=== PATIENT | male | born 1990 | race Caucasian/White ===

== ENCOUNTER 2016-07-19 19:39 | Emergency (ER) | payer OTHER ==
[2016-07-19 19:58] VITALS: RESP 18; TEMP 100
[2016-07-19] MEDS ORDERED: NS 1,000 ML IV ONE (20:25)
--- NOTE | 2016-07-19 20:35 | EDPHY ---
H & P Stated Complaint: ACHEY, FATIGUE, LOW BACK PAIN, CONSTIPATED - Personal History Current Tetanus/Diphtheria Vaccine: Unsure - Medical/Surgical History Hx Asthma: No Hx Chronic Respiratory Disease: No Hx Diabetes: No Hx Cardiac Disease: No Hx Renal Disease: No Hx Cirrhosis: No Hx Alcoholism: No Hx HIV/AIDS: No Hx Splenectomy or Spleen Trauma: Yes Other PMH: SPHEROCYTOSIS, SPLEEN/GB REMOVAL AT 4 YR OLD, TONSILS, CELLULITIS LYMPH NODE INVOLVEMENT - Social History Smoking Status: Never smoked HPI/ROS: CHIEF COMPLAINT: Abdominal pain HISTORY OF PRESENT ILLNESS: right lower quadrant and left lower quadrant abdominal pain that started yesterday or 2 days ago. Mild 1st now moderate. Radiates into the back. Describes a dull pain. Consideration. Worse with palpation or movement. Improves when on his side. No fever but some general malaise and fatigue recently. No hematuria. No difficulty or painful urination. No chest pain or shortness of breath. No rash. No other associated complaints or modifying factors. REVIEW OF SYSTEMS: Ten systems reviewed and are negative unless otherwise noted in the HPI EXAMINATION: General Appearance: Alert, no distress Head: normocephalic, atraumatic Eyes: Pupils equal and round, no conjunctival pallor or injection ENT, Mouth: Mucous membranes moist Neck: Normal inspection, supple, non-tender Respiratory: Lungs are clear to auscultation Cardiovascular: Regular rate and rhythm Gastrointestinal: Abdomen is soft With mild tenderness in both lower quadrants.. No tympany. No rigidity. No CVA tenderness.Non-acute abdomen. Back: non-tender, no bony abnormalities Neurological: A&O, nonfocal, normal gait Skin: Warm and dry, no rash Extremities: Nontender, no pedal edema Psychiatric: Mood and affect normal DIFFERENTIAL DIAGNOSES: Including but not limited to Appendicitis, enteritis, Crohn's, kidney stone, colitis, diverticulitis MDM: Generalized abdominal pain without fever, chills, vomiting or diarrhea. Laboratory studies reveal a very mild leukocytosis without other significant findings. CT scan reveals lymph nodes as reviewed in today's report. Radiologist discussed this with her. No appendicitis. No enteritis. No surgical findings. His exam remains benign with a nonacute abdomen. We did discuss previous issues of this, he reports the possibility of a cellulitis that may develop as he has experienced this in the past. He has no cellulitis at this time. We discussed discharge home with a prescription for Augmentin in case he develops a fever. She developed a fever, he is to start taking Augmentin and return to the emergency department for further care. Additionally we will refer him to primary care physician on-call as well as [facility]. He is comfortable with this plan and discharged home in stable condition. ED Precautions: Worsening pain. Fever or chills. Bloody stools. Bloody emesis. Constipation or diarrhea. SUPERVISION: Patient was evaluated in conjunction with the supervising physician. Please see their note for details. (Jeff Calloway) Constitutional: Initial Vital Signs Temperature (C) 37.8 C 07/19/16 19:54 Heart Rate 86 07/19/16 19:54 Respiratory Rate 18 07/19/16 19:54 Blood Pressure 136/75 H 07/19/16 19:54 O2 Sat (%) 95 07/19/16 19:54 O2 Delivery Mode Room Air Allergies/Adverse Reactions: No Known Allergies Allergy (Unverified 07/19/16 19:54) Home Medications: Medication Instructions Recorded Amoxicillin/Clavulanate Pot 875 mg PO BID #14 tab 07/19/16 [Augmentin 875 MG TAB (*)] Medical Decision Making ED Course/Re-evaluation: ED PA DICTATION I evaluated and participated in the management of the patient. I also evaluated the patient independently. My co-signature indicates that I have reviewed this chart and I agree with the findings and plan of care as documented. My personal H&P findings include: This is a 25-year-old man who is asplenic due to spherocytosis, who presents with abdominal pain and constipation. He is afebrile with normal vital signs. His abdominal exam is benign. CT scan reveals mesenteric adenitis. We plan to discharge him the will give a prescription for antibiotics if he spikes a fever he should take the antibiotic and return to the emergency room for concern for sepsis. (Sridevi Draper) - Data Points Laboratory Results: Laboratory Results 07/19/16 20:30 07/19/16 20:30 07/19/16 07/19/16 22:05 20:30 WBC 12.40 H 10^3/uL (3.80-9.50) RBC 5.01 10^6/uL (4.40-6.38) Hgb 17.2 g/dL (13.7-17.5) Hct 46.0 % (40.0-51.0) MCV 91.8 fL (81.5-99.8) MCH 34.3 H pg (27.9-34.1) MCHC 37.4 H g/dL (32.4-36.7) RDW 12.1 % (11.5-15.2) Plt Count 414 H 10^3/uL (150-400) MPV 9.2 fL (8.7-11.7) Neut % (Auto) Not Reported Lymph % (Auto) Not Reported [place]min[place] % (Auto) Not Reported Eos % (Auto) Not Reported Baso % (Auto) Not Reported Nucleat RBC Rel Count 0.0 % (0.0-0.2) Absolute Neuts (auto) Not Reported Absolute Lymphs (auto) Not Reported Absolute Monos (auto) Not Reported Absolute Eos (auto) Not Reported Absolute Basos (auto) Not Reported Absolute Nucleated RBC 0.00 10^3/uL (0-0.01) Immature Gran % Not Reported Seg Neutrophils % 64 % Band Neutrophils % 1 % Lymphocytes % 23 % Monocytes % 10 % Eosinophils % 2 % Immature Gran # Not Reported Absolute Seg Neuts 7.94 H 10^/uL (1.70-6.50) Absolute Band Neuts 0.12 10^3/uL (0.00-0.70) Absolute Lymphocytes 2.85 10^3/uL (1.00-3.00) Absolute Monocytes 1.24 H 10^3/uL (0.30-0.80) Absolute Eosinophils 0.25 10^3/uL (0.03-0.40) RBC/WBC/PLT Morphology NORMAL (NORMAL) Platelet Estimate ADEQUATE (ADEQ) Large Platelets PRESENT H Sodium 140 mEq/L (134-144) Potassium 4.1 mEq/L (3.5-5.2) Chloride 100 mEq/L (97-110) Carbon Dioxide 27 mEq/l (22-31) Anion Gap 13 mEq/L (8-16) BUN 9 mg/dL (7-23) Creatinine 0.8 mg/dL (0.7-1.3) Estimated GFR > 60 Glucose 116 H mg/dL (70-100) Calcium 9.3 mg/dL (8.5-10.4) Total Bilirubin 1.2 mg/dL (0.1-1.4) Conjugated Bilirubin 0.2 mg/dL (0.0-0.5) Unconjugated Bilirubin 1.0 mg/dL (0.0-1.1) AST 28 IU/L (17-59) ALT 34 IU/L (21-72) Alkaline Phosphatase 60 IU/L (38-126) Total Protein 7.5 g/dL (6.3-8.2) Albumin 4.4 g/dL (3.5-5.0) Lipase 48.0 IU/L (23-300) Urine Color YELLOW Urine Appearance CLEAR Urine pH 7.0 (5.0-7.5) Ur Specific [place] 1.031 H (1.002-1.030) Urine Protein NEGATIVE (NEGATIVE) Urine Ketones NEGATIVE (NEGATIVE) Urine Blood NEGATIVE (NEGATIVE) Urine Nitrate NEGATIVE (NEGATIVE) Urine Bilirubin NEGATIVE (NEGATIVE) Urine Urobilinogen NEGATIVE EU (0.2-1.0) Ur Leukocyte Esterase NEGATIVE (NEGATIVE) Ur Culture Indicated? NOT INDICATED (NI) Urine Glucose NEGATIVE (NEGATIVE) Medications Given: Discontinued Medications Sodium Chloride (Ns) 1,000 mls @ 0 mls/hr IV ONCE ONE PRN Reason: Wide Open Stop: 07/19/16 20:26 Last Admin: 07/19/16 20:40 Dose: 1,000 mls Departure - Departure Disposition: Home, Routine, Self-Care Clinical Impression: Mesenteric adenitis, Asplenia Condition: Good Instructions: Mesenteric Adenitis (ED) Additional Instructions: Follow up with [facility] or primary care physician on-call as listed. Return to the ER for fever or chills. Return to ER for worsening pain, vomiting , diarrhea or bloody stools. He Referrals: NONE *PRIMARY CARE P,. [Primary Care Provider] - As per Instructions Salo Wray MD [Medical Doctor] - As per Instructions [facility] [Outside] - As per Instructions Prescriptions: Amoxicillin/Clavulanate Pot [Augmentin 875 MG TAB (*)] 875 mg PO BID #14 tab
[2016-07-19 20:41] LABS: ADD DIFF? YES; ADD MORPH? NO; ADD SCAN? NO; ATYPICAL LYMPHOCYTE FLAG 10 (0-99); FRAGMENT RBC FLAG 0 (0-99); HEMOGLOBIN 17.2 g/dL (13.7-17.5); LEFT SHIFT FLG 10 (0-99); LIPEMIA HEMOLYSIS FLAG 90 (0-99); MEAN CELL HEMOGLOBIN 34.3 pg (27.9-34.1); MEAN CELL HEMOGLOBIN CONCENTR. 37.4 g/dL (32.4-36.7); MEAN CELL VOLUME 91.8 fL (81.5-99.8); MEAN PLATELET VOLUME 9.2 fL (8.7-11.7); PLATELET CLUMPS FLAG 10 (0-99); PLATELET COUNT 414 10^3/uL (150-400); RED BLOOD CELL COUNT 5.01 10^6/uL (4.40-6.38); RED CELL DISTRIBUTION WIDTH 12.1 % (11.5-15.2)
[2016-07-19 20:50] LABS: ALANINE AMINOTRANSFERASE 34 IU/L (21-72); ALBUMIN 4.4 g/dL (3.5-5.0); ALKALINE PHOSPHATASE 60 IU/L (38-126); ANION GAP 13 mEq/L (8-16); ASPARTATE AMINOTRANSFERASE 28 IU/L (17-59); BILIRUBIN,TOTAL 1.2 mg/dL (0.1-1.4); BILIRUBIN-CONJUGATED 0.2 mg/dL (0.0-0.5); CALCIUM 9.3 mg/dL (8.5-10.4); CARBON DIOXIDE 27 mEq/l (22-31); CHLORIDE 100 mEq/L (97-110); CREATININE 0.8 mg/dL (0.7-1.3); GLOMERULAR FILTRATION RATE > 60; GLUCOSE 116 mg/dL (70-100); POTASSIUM 4.1 mEq/L (3.5-5.2); SODIUM 140 mEq/L (134-144); TOTAL PROTEIN 7.5 g/dL (6.3-8.2)
[2016-07-19] MEDS ORDERED: IOPAMIDOL (ISOVUE-300) 50 ML VIAL IV ONE (21:04)
[2016-07-19 21:20] LABS: LARGE PLATELETS PRESENT; PLATELET ESTIMATE ADEQUATE (ADEQ)
--- NOTE | 2016-07-19 21:55 | CT ---
Contrast-Enhanced CT Scan of the Abdomen and Pelvis Clinical History: 25-year-old male with lower abdominal pain for two days. The patient has had a prio r splenectomy and a cholecystectomy at age 4. Technique: Neither oral nor retrograde rectal contrast was administered. The patient did receive 90 m L of IV Isovue-300 without complication, and a multidetector helical CT scan was obtained from the malik ng bases inferiorly through the proximal femora, with images reformatted at 5.00 and 1.50 mm incremen ts and reviewed at a variety of window and level settings. Parasagittal and paracoronal reconstructed images were reviewed on the workstation. The DFOV is 40.5 cm. A dose reduction protocol was used. Comparison Study: None. Findings: Contrast-Enhanced CT Scan of the Abdomen: There are some minor dependent changes seen at the lung bas es. There is no pleural or pericardial effusion. The liver is enlarged, measuring 20.6 cm in cephaloc audal diameter, and there is some mild steatosis. There is no focal hepatic mass. There is no intra- or extrahepatic bile duct dilatation. The gallbladder is surgically absent. The pancreatic contour is normal. The spleen is also surgically absent with fecal-filled loops of splenic flexure seen in the left upper quadrant of the abdomen. The adrenal glands and kidneys are normal. The abdominal aorta an d the IVC are normal in caliber. There is no ascites or pneumoperitoneum. The osseous structures are age-appropriate. Contrast-Enhanced CT Scan of the Pelvis: The retrocecal appendix is normal, as noted on series 4 imag es 177-209 and on coronal series 5 images 32-37. There is no pericecal or periappendiceal inflammatio n. There is no retroperitoneal adenopathy. A few shotty mesenteric lymph nodes are seen posterior to the cecum on axial series 4 images 156-164 and images 185-197. The largest measures up to 21 mm in di ameter. There is no free fluid. The urinary bladder, prostate gland, and the seminal vesicles are unr emarkable. There is moderate constipation. The osseous structures are age-appropriate. Impression: 1. Status post cholecystectomy and splenectomy. 2. Hepatomegaly with mild steatosis. 3. Moderate constipation. 4. Normal CT appearance of the appendix. 5. Mild right lower quadrant mesenteric adenitis. Results were discussed with Jeff Calloway PA-C. A test result has been communicated to a licensed care provider and documented in [employer], 9:42:09 PM , 07/19/2016, [employer] Message ID [id number].
[2016-07-19 22:15] LABS: COLOR YELLOW; LEUKOCYTE ESTERASE,URINE NEGATIVE (NEGATIVE); NITRITE,URINE NEGATIVE (NEGATIVE)
[2016-07-19 22:47] VITALS: BP 149/75; PULSE 75; O2SAT 97
== END 2016-07-19 22:54 | disposition home or self-care (01) ==
DX: I88.0 Nonspecific mesenteric lymphadenitis (principal); D73.89 Other diseases of spleen
CPT/HCPCS: Q9967

== ENCOUNTER → 2017-03-10 | Outpatient (CLI) | payer OTHER, MEDICAID | LOC: BMCIMAGING 13:44 | PROVIDERS: ATTEND Internal Medicine Rheumatology | DX: M53.3 Sacrococcygeal disorders, not elsewhere classified (principal); M54.6 Pain in thoracic spine; M54.5 Low back pain ==